=== PATIENT | female | born 1965 | race Caucasian/White ===

== ENCOUNTER 2024-01-20 17:46 | Emergency (ER) | payer BC ==
[~2024-01-20] VITALS: Ht 162.6 cm; Wt 94.3 kg
[2024-01-20 18:04] VITALS: BP 120/81; PULSE 89; RESP 16; TEMP 98.4; O2SAT 99
[2024-01-20] MEDS ORDERED: IBUP-2213 PO (18:31)
[2024-01-20 18:53] VITALS: BP 120/81; PULSE 71; RESP 16; TEMP 98; O2SAT 99
== END 2024-01-20 18:55 | disposition home or self-care (01) ==
LOC: MED 17:46
DX: H92.02 Otalgia, left ear (principal); R22.1 Localized swelling, mass and lump, neck; F17.200 Nicotine dependence, unspecified, uncomplicated; Z79.1 Long term (current) use of non-steroidal anti-inflammatories (NSAID)
CPT/HCPCS: 99282